=== PATIENT | female | born 1970 | race Caucasian/White ===

== ENCOUNTER 2017-01-12 22:42 | Emergency (ER) | payer OTHER ==
[2017-01-12 22:47] VITALS: BP 145/94
[2017-01-13] MEDS ORDERED: Amoxicillin/Clavulanate TAB* 875 MG PO ONE (00:18)
[2017-01-13] MEDS ORDERED: Cephalexin CAP* 500 MG PO ONE (00:19)
--- NOTE | 2017-01-13 01:14 | ED ---
Upper Extremity Pain - HPI Summary HPI Summary: Pt here w/ worker's compensation injury - was using a machine at work used for "chopping" when she accidentally got the tip of her Rt index finger caught - pulled it out immediately but has a cracked nail and pain. Had some bleeding - stopped with pressure. Mild pain in the area. Imms are UTD. Denies numbness, tingling, weakness. 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 Time Seen by Provider: 01/12/17 22:58 Hx Obtained From: Patient Hx Last Menstrual Period: 2 weeks ago - Allergies/Home Medications Allergies/Adverse Reactions: Allergies Allergy/AdvReac Type Severity Reaction Status Date / Time No Known Allergies Allergy Verified 07/08/16 07:50 PMH/Surg Hx/FS Hx/Imm Hx Previously Healthy: Yes Endocrine/Hematology History: Denies: Hx Anticoagulant Therapy, Hx Blood Disorders, Hx Diabetes, Hx Thyroid Disease Cardiovascular History: Denies: Hx Hypertension Respiratory History: Denies: Hx Asthma, Hx Chronic Obstructive Pulmonary Disease (COPD) GI History: Denies: Hx Ulcer History: Denies: Hx Renal Disease Sensory History: Reports: Hx Contacts or Glasses - GLASSES Denies: Hx Hearing Aid Opthamlomology History: Reports: Hx Contacts or Glasses - GLASSES Psychiatric History: Reports: Hx Depression - wellbutrin - Cancer History Hx Chemotherapy: No Hx Radiation Therapy: No - Surgical History Surgery Procedure, Year, and Place: 1990 LAPROSCOPIC CHOLECYSTECTOMY, [facility] Hx Anesthesia Reactions: No - Immunization History Immunizations Up to Date: Yes Infectious Disease History: No Infectious Disease History: Denies: Hx Hepatitis, Hx Human Immunodeficiency Virus (HIV), Hx of Known/ Suspected MRSA, Traveled Outside the in Last 30 Days - Family History Known Family History: Positive: None - Social History Occupation: Employed Full-time - [employer] Alcohol Use: Weekly Alcohol Amount: 2 WEEK Hx Substance Use: No Substance Use Type: Reports: None Hx Tobacco Use: Yes Smoking Status (MU): Former Smoker Type: Cigarettes Amount Used/How Often: 1 PACK PER WEEK Have You Smoked in the Last Year: No Review of Systems Positive: no symptoms reported Musculoskeletal: Other - sore tip Skin: Other - see HPI Neurological: Negative Psychological: Normal All Other Systems Reviewed And Are Negative: Yes Physical Exam Triage Information Reviewed: Yes Vital Signs On Initial Exam: Initial Vitals Temp Pulse Resp BP Pulse Ox 97.6 F 79 18 145/94 96 01/12/17 22:45 01/12/17 22:45 01/12/17 22:45 01/12/17 22:45 01/12/17 22:45 Vital Signs Reviewed: Yes Appearance: Positive: Well-Appearing, No Pain Distress, Well-Nourished Skin: Positive: Warm, Dry - nail bed of Rt index finger w/ crack and dried blood - she has artificial nails on top of her natural nailbed - mild laxity of distal tip - no papito edema/ecchymosis of tip - moving finger well, no active bleeding Head/Face: Positive: Normal Head/Face Inspection Eyes: Positive: EOMI ENT: Positive: Hearing grossly normal Cardiovascular: Positive: Pulses are Symmetrical in both Upper and Lower Extremities Musculoskeletal: Positive: Normal, Strength/ROM Intact Neurological: Positive: Normal, Sensory/Motor Intact, Alert, Oriented to Person Place, Time, CN Intact II-III Psychiatric: Positive: Normal Diagnostics - Vital Signs Vital Signs Temp Pulse Resp BP Pulse Ox 01/12/17 22:45 97.6 F 79 18 145/94 96 - Laboratory Diagnostic Studies Comment: Rt index finger w/o fx, no dislocation, no FB (wet read) Lab Statement: Any lab studies that have been ordered have been reviewed, and results considered in the medical decision making process. Course/Dx - Course Course Of Treatment: Pt appears to have a nail with nail bed injury. No fx on XR. D/t nature of injury w/ artifical nail in place, will start anbx. Advised f/ u w/ hand specialist. Return if danger s/sx present. - Diagnoses Provider Diagnoses: Nail bed injury Discharge - Discharge Plan Condition: Stable Disposition: HOME Prescriptions: Cephalexin CAP* [Keflex CAP*] 500 mg PO BID #19 cap Patient Education Materials: Finger Laceration (ED) Forms: *Work Release Referrals: Nacho Du MD [Medical Doctor] - Additional Instructions: You appear to have a laceration of your finger nail bed without fracture. Rest, ice, elevate You may take ibuprofen 600mg every 6 hours with food for pain, swelling You may soak your finger 2 x day in soapy soaks - rinse well and pat dry then dress with triple antibiotic ointment and dressing Avoid direct use and wear split until finger injury heals Follow-up with hand specialist later this week. Call tomorrow to schedule an appointment *If you develop redness, swelling, streaking, purulent drainage, fever, chills, return to ED
--- NOTE | 2017-01-13 07:56 | RAD ---
Indication: Crush injury to the distal tip of the finger. 3 views of the right index finger demonstrates no fracture. The proximal and distal interphalangeal joints are unremarkable. IMPRESSION: No fracture of the right index finger is noted.
== END 2017-01-13 01:38 | disposition home or self-care (01) ==
LOC: ED 22:42
DX: S69.91XA Unspecified injury of right wrist, hand and finger(s), initial encounter (principal); X58.XXXA Exposure to other specified factors, initial encounter; Y93.9 Activity, unspecified; Y92.9 Unspecified place or not applicable; Z87.891 Personal history of nicotine dependence
CPT/HCPCS: 73140; 99282; A9270-GY